=== PATIENT | male | born 1955 | race Caucasian/White ===

== ENCOUNTER 2018-02-23 15:20 | Emergency (ER) | payer OTHER ==
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
[2018-02-23 15:28] VITALS: BP 152/93; PULSE 87; TEMP 98.7; BMI 32.5
[2018-02-23] MEDS ORDERED: IBUPROFEN 600 MG TABLET (FP) PO ONE ×2 (15:52→15:53)
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
[2018-02-23 16:51] LABS: URINE APPEARANCE CLEAR; URINE BILIRUBIN NEGATIVE (<2.0 mg/dL); URINE COLOR YELLOW; URINE GLUCOSE (UA) NEGATIVE (NEGATIVE); URINE KETONE TRACE (NEGATIVE); URINE LEUK ESTERASE TRACE (NEGATIVE); URINE NITRITE NEGATIVE (NEGATIVE); URINE UROBILINOGEN NEGATIVE mg/dL (0.2-1.0)
[2018-02-23 16:58] LABS: URINE PROTEIN 1+ (NEGATIVE)
[2018-02-23 17:03] LABS: URINE MUCUS RARE
== END 2018-02-23 17:05 | disposition home or self-care (01) ==
LOC: JERFT 15:20
DX: T14.8XXA Other injury of unspecified body region, initial encounter (principal); V03.90XA Pedestrian on foot injured in collision with car, pick-up truck or van, unspecified whether traffic or nontraffic accident, initial encounter; Y93.89 Activity, other specified; Y92.410 Unspecified street and highway as the place of occurrence of the external cause; I10 Essential (primary) hypertension
CPT/HCPCS: 73030-TC-RT-FY; 81003; 81015; 99281-25